=== PATIENT | male | born 1995 | race Caucasian/White ===

== ENCOUNTER 2019-07-01 03:58 | Emergency (ER) | payer BC, SELFPAY ==
[2019-07-01 03:59] VITALS: BP 143/102; PULSE 88; RESP 18; TEMP 36.6; O2SAT 97; BMI 35.6
--- NOTE | 2019-07-01 04:19 | ED_ITS ---
Entered by Ondina Lucero, acting as scribe for Zach Carreno DO HPI - Psych General: Chief Complaint: Psychiatric Symptoms Stated Complaint: SI Time Seen by Provider: 07/01/19 04:19 Source: patient Mode of arrival: EMS Limitations: no limitations History of Present Illness: HPI Narrative: 24 yo m came to the er by [facility]. Pt states that he has si thoughts. Onset was 20 min ago. PT states that the only reason that he is here is because of what someone said. Pt states that he does have a plan but unsure of what that is at this time. Pt states that he has been drinking since 4am. MD complaint: suicidal ideation Onset (ago): minute(s) (20 min ago) Duration: constant History of same: No Relieving factors: none Context: recent alcohol abuse Associated psychiatric symptoms: suicidal ideation Associated symptoms: Deny auditory hallucinations or visual hallucinations Treatments prior to arrival: none If self harm: has plan Details of plan: pt is unsure of plan at this time. Review of Systems Const: Denies: fever or chills Eyes: Denies: change in vision or blurry vision ENMT: Denies: painful swallowing, bleeding gums, dental pain, post nasal drip or facial/sinus pain Card: Denies: chest pain, palpitations, irregular heart rhythm, edema, swelling of feet/ankles, shortness of breath on exertion or shortness of breath when lying down Resp: Denies: shortness of breath, productive cough, non-productive cough or wheezing GI: Denies: abdominal pain, nausea or vomiting : Denies: painful urination or blood in urine Skin/Breast: Denies: rash, itching or redness Neuro: Reports: headache; Denies: confusion Psych: Reports: anxiety; Denies: visual hallucinations or auditory hallucinations PFSH ED PFSH: Statuses (acute, chronic, etc) shown below reflect problem list status as previously entered and may not be historically accurate Social History Smoking and tobacco status: current every day smoker Physical Exam Const: GENERAL APPEARANCE: well developed ORIENTATION/CONSCIOUSNESS: Yes oriented to person, Yes oriented to place and Yes oriented to time HENMT: COMMON NORMALS: normocephalic, external ears normal and external nose normal HEAD & SCALP: normocephalic; no scalp tenderness FACE & SINUS: normal facial exam NOSE: external nose normal and no nasal discharge EXTERNAL EAR: Yes external ears normal MOUTH: tongue normal THROAT: posterior oropharynx normal; no peritonsillar mass Eye: COMMON NORMALS: PERRL, EOMs intact bilaterally and conjunctivae normal EYELID: eyelids normal CONJUNCTIVA: Yes conjunctivae normal PUPIL: Yes PERRL Chest: COMMONS NORMALS: inspection of chest normal CHEST: No tenderness Resp: COMMON NORMALS: clear to auscultation bilaterally EFFORT & INSPECTION: No tachypneic, No respiratory distress, No retractions, No uses accessory muscles and No tracheal deviation AUSCULTATION: clear to auscultation bilaterally, no rhonchi, no wheezes and lung sounds not diminished Cardio: COMMON NORMALS: regular rate and regular rhythm RATE: regular rate RHYTHM: regular rhythm HEART SOUNDS: no murmurs PERIPHERAL PULSES: radial pulses present GI: INSPECTION: No abdominal distension AUSCULTATION: No hyperactive bowel sounds and No hypoactive bowel sounds PALPATION: No guarding and No rigid PERCUSSION: no dullness to percussion and no tympanic to percussion Neuro: SENSORIUM/ORIENTATION: Yes oriented to person, Yes oriented to place and Yes oriented to time Psych: APPEARANCE: Yes unkempt ATTITUDE: Yes withdrawn ACTIVITY/MOTOR BEHAVIOR: Yes appropriate eye contact SPEECH: Yes slurred MOOD & AFFECT: Yes depressed mood THOUGHT PROCESS: No confused and no flight of ideas THOUGHT CONTENT: No suicidality ATTENTION/CONCENTRATION: Yes attention grossly intact MEMORY/COGNITION: Yes memory grossly intact INSIGHT: insight good JUDGEMENT: judgment good Skin: COMMON NORMALS: no rashes or lesions noted GENERAL SKIN EXAM: no rashes or lesions noted MDM - Psych Lab Data: Labs: Lab Results 07/01/19 07/01/19 07/01/19 Range/Units 05:10 05:10 05:20 WBC 10.0 (4.0-10.0) 10^3/ uL RBC 5.77 H (4.1-5.3) 10^6/u L Hgb 16.4 (11.7-16.6) g/dL Hct 47.9 (42.0-52.0) % MCV 83.0 (80-94) fL MCH 28.4 (28.0-34.0) pg MCHC 34.2 (30.0-36.0) g/dL RDW 12.5 (12.1-15.1) % Plt Count 317 (130-400) 10^3/c mm MPV 10.1 (7.4-10.4) fL Neut % (Auto) 55.0 % Lymph % (Auto) 31.8 % [place] % (Auto) 6.2 % Eos % (Auto) 6.1 % Baso % (Auto) 0.6 % Neut # (Auto) 5.5 (1.8-7.7) 10^3/u L Lymph # (Auto) 3.2 (0.8-4.8) 10^3/u L [place] # (Auto) 0.6 (0.2-0.9) 10^3/u L Eos # (Auto) 0.6 (0.0-0.8) 10^3/u L Baso # (Auto) 0.1 (0.0-0.1) 10^3/u L Nucleated RBC % (a uto) 0 % Nucleated RBCs # 0.0 /100WBC Sodium 140 (136-145) mmol/L Potassium 4.0 (3.5-5.1) mmol/L Chloride 103 (98-107) mmol/L Carbon Dioxide 22 (22-29) mmol/L Anion Gap 19.0 (5-19) BUN 11 (6-20) mg/dL Creatinine 0.7 (0.7-1.2) mg/dL GFR Calculation 137.4 H (90-130) mL/min Glucose 100 (74-109) mg/dL Calcium 10.0 (8.5-10.5) mg/dL Total Bilirubin 0.4 (0.15-1.2) mg/dL AST 31 (0-40) U/L ALT 76 H (0-41) U/L Alkaline Phosphata se 93 (40-130) IU/L Total Protein 8.1 (6.6-8.7) g/dL Albumin 4.8 (3.5-5.2) g/dL Globulin 3.3 (1.3-4.6) g/dL Urine Color Yellow (Yellow) Urine Appearance Clear (CLEAR) Urine pH 5 (5-7) Ur Specific Gravit y 1.020 (1.005-1.030) Urine Protein Neg (Negative) Urine Glucose (UA) Norm (Normal) Urine Ketones Negative (Negative) Urine Occult Blood 2+ H (Negative) Urine Nitrate Negative (Negative) Urine Bilirubin Neg (NEGATIVE) Urine Urobilinogen Norm (Negative) mg/dL Ur Leukocyte Elsa ase Negative (Negative) Urine RBC 0-4 H (0-2) /hpf Urine WBC 5-10 H (0-5) /hpf Ur Squamous Epith Cells 0-4 H (0-5) Urine Bacteria 1+ H (NONE) Urine Mucus 2+ Salicylates < 0.3 L (3-10) mg/dL Urine Opiates Scre en (Negative) ng/mL Acetaminophen < 5.0 L (10-30) ug/mL Ur Barbiturates Sc reen (Negative) ng/mL Ur Phencyclidine S crn (Negative) ng/mL Ur Amphetamines Sc reen (Negative) ng/mL U Benzodiazepines Scrn (Negative) ng/mL Urine Cocaine Scre en (Negative) ng/mL U Marijuana (THC) Screen (Negative) ng/mL Ethyl Alcohol 87 H (0-10) mg/dL 07/01/19 Range/Units 05:20 WBC (4.0-10.0) 10^3/ uL RBC (4.1-5.3) 10^6/u L Hgb (11.7-16.6) g/dL Hct (42.0-52.0) % MCV (80-94) fL MCH (28.0-34.0) pg MCHC (30.0-36.0) g/dL RDW (12.1-15.1) % Plt Count (130-400) 10^3/c mm MPV (7.4-10.4) fL Neut % (Auto) % Lymph % (Auto) % [place] % (Auto) % Eos % (Auto) % Baso % (Auto) % Neut # (Auto) (1.8-7.7) 10^3/u L Lymph # (Auto) (0.8-4.8) 10^3/u L [place] # (Auto) (0.2-0.9) 10^3/u L Eos # (Auto) (0.0-0.8) 10^3/u L Baso # (Auto) (0.0-0.1) 10^3/u L Nucleated RBC % (a uto) % Nucleated RBCs # /100WBC Sodium (136-145) mmol/L Potassium (3.5-5.1) mmol/L Chloride (98-107) mmol/L Carbon Dioxide (22-29) mmol/L Anion Gap (5-19) BUN (6-20) mg/dL Creatinine (0.7-1.2) mg/dL GFR Calculation (90-130) mL/min Glucose (74-109) mg/dL Calcium (8.5-10.5) mg/dL Total Bilirubin (0.15-1.2) mg/dL AST (0-40) U/L ALT (0-41) U/L Alkaline Phosphata se (40-130) IU/L Total Protein (6.6-8.7) g/dL Albumin (3.5-5.2) g/dL Globulin (1.3-4.6) g/dL Urine Color (Yellow) Urine Appearance (CLEAR) Urine pH (5-7) Ur Specific Gravit y (1.005-1.030) Urine Protein (Negative) Urine Glucose (UA) (Normal) Urine Ketones (Negative) Urine Occult Blood (Negative) Urine Nitrate (Negative) Urine Bilirubin (NEGATIVE) Urine Urobilinogen (Negative) mg/dL Ur Leukocyte Elsa ase (Negative) Urine RBC (0-2) /hpf Urine WBC (0-5) /hpf Ur Squamous Epith Cells (0-5) Urine Bacteria (NONE) Urine Mucus Salicylates (3-10) mg/dL Urine Opiates Scre en Negative (Negative) ng/mL Acetaminophen (10-30) ug/mL Ur Barbiturates Sc reen Negative (Negative) ng/mL Ur Phencyclidine S crn Negative (Negative) ng/mL Ur Amphetamines Sc reen Negative (Negative) ng/mL U Benzodiazepines Scrn Negative (Negative) ng/mL Urine Cocaine Scre en Negative (Negative) ng/mL U Marijuana (THC) Screen Positive H (Negative) ng/mL Ethyl Alcohol (0-10) mg/dL Discharge Plan Discharge Patient Disposition: Home, Self-Care Condition: Stable Prescriptions: No Action No Known Home Medications RF: 0 Discharge Orders: Discharge Order (Routine); Ordered 07/01/19 Ordered By: Zach Carreno Discharge Diet: Advance as tolerated Discharge Activity: Resume usual activity Patient Instructions: Depression (ED) Discharge Date/Time: 07/01/19 06:36 Coding Level of Care Code ED Sheeter Machine Operator for Chg Fwd The documentation recorded by the Nic gonzalez Stephanie Lyn, accurately reflects the service I personally performed and the decisions made by Wai mancini Jeremy John, DO Jul 01, 2019 03:58
--- NOTE | 2019-07-01 04:27 | PC.NURSE ---
Patient seems a little irritable for being here. States he said a suicidal statement out of anxiety, has no plans and did not truly mean statement. Patient is calm and cooperative at this time and states he feels he is wasting our time. Only agreed to come to be compliant. The person who had him sent here, works here.
[2019-07-01 05:24] LABS: Basophils # 0.1 10^3/uL (0.0-0.1); Basophils % 0.6 %; Eosinophils # 0.6 10^3/uL (0.0-0.8); Eosinophils % 6.1 %; Hematocrit 47.9 % (42.0-52.0); Hemoglobin 16.4 g/dL (11.7-16.6); Lymphocytes # 3.2 10^3/uL (0.8-4.8); Lymphocytes % 31.8 %; Mean Corpuscular HGB Conc 34.2 g/dL (30.0-36.0); Mean Corpuscular Hemoglobin 28.4 pg (28.0-34.0); Mean Platelet Volume 10.1 fL (7.4-10.4); Monocytes # 0.6 10^3/uL (0.2-0.9); Monocytes % 6.2 %; Neutrophils # 5.5 10^3/uL (1.8-7.7); Nucleated Red Blood Cells % 0 %; Platelet Count 317 10^3/cmm (130-400); Red Blood Count 5.77 10^6/uL (4.1-5.3); Red Cell Distribution Width 12.5 % (12.1-15.1)
[2019-07-01] MEDS: ketorolac 10 mg Tablet PO (05:33)
[2019-07-01 05:40] LABS: Acetaminophen < 5.0 ug/mL (10-30); Alanine Aminotransferase 76 U/L (0-41); Albumin Level 4.8 g/dL (3.5-5.2); Alcohol Level 87 mg/dL (0-10); Alkaline Phosphatase 93 IU/L (40-130); Aspartate Amino Transferase 31 U/L (0-40); Blood Urea Nitrogen 11 mg/dL (6-20); Carbon Dioxide 22 mmol/L (22-29); Chloride 103 mmol/L (98-107); Globulin 3.3 g/dL (1.3-4.6); Glomerular Filtration Rate 137.4 mL/min (90-130); Glucose 100 mg/dL (74-109); Salicylate < 0.3 mg/dL (3-10); Sodium 140 mmol/L (136-145); Total Bilirubin 0.4 mg/dL (0.15-1.2); Total Protein 8.1 g/dL (6.6-8.7)
[2019-07-01 06:09] LABS: Add Urine Microscopic? YES; Bilirubin Urine Neg (NEGATIVE); Blood Urine 2+ (Negative); Glucose Urine UA Norm (Normal); Ketones Urine Negative (Negative); Leukocyte Esterase Urine Negative (Negative); Nitrate Urine Negative (Negative); Protein Urine Neg (Negative); Urine Appearance Clear (CLEAR); Urine Color Yellow (Yellow); Urobilinogen Urine Norm (Negative); pH Urine 5 (5-7)
[2019-07-01 06:10] LABS: Add Urine Culture? No; Bacteria Urine 1+; Mucus Urine 2+; RBC Urine 0-4 /hpf (0-2); Squamous Epithelial Cell Urine 0-4 (0-5)
[2019-07-01 06:11] LABS: Amphetamines Screen Urine Negative (Negative); Barbiturates Screen Urine Negative (Negative); Benzodiazepines Screen Urine Negative (Negative); Cocaine Screen Urine Negative (Negative); Opiate Screen Urine Negative (Negative); PCP Screen Urine Negative (Negative); THC Screen Urine Positive (Negative)
[2019-07-01 06:35] VITALS: BP 144/84; PULSE 95; RESP 18; O2SAT 95
== END 2019-07-01 06:36 | disposition home or self-care (01) ==
PROVIDERS: Emergency Provider Emergency Medicine
DX: R45.851 Suicidal ideations (principal); F17.210 Nicotine dependence, cigarettes, uncomplicated
CPT/HCPCS: 80053; 80307; 81001; 85025; 99284; A9270

== ENCOUNTER 2021-05-13 19:24 | Emergency (ER) | payer MEDICAID, SELFPAY ==
[2021-05-13 19:47] VITALS: BP 134/83; PULSE 103; RESP 18; TEMP 37; O2SAT 99; BMI 30.6
--- NOTE | 2021-05-13 19:58 | ED_ITS ---
HPI - General Adult General: Chief complaint: Epistaxis Stated complaint: Nose bleed for 3 days Time Seen by Provider: 05/13/21 19:58 History of Present Illness: HPI narrative: 26-year-old male comes in with persistent nosebleed for the last 3 days. Patient reports significant bleeding at times. Patient appears well. Patient appears no acute distress. Review of Systems General: Reports: 10 or more systems reviewed and unremarkable except in HPI and below ENMT: Reports: epistaxis PFSH ED PFSH: Social History Smoking and tobacco status: current every day smoker Physical Exam Const: COMMON NORMALS: no acute distress and patient oriented x3 GENERAL APPEARANCE: cooperative HENMT: COMMON NORMALS: normocephalic and TM's normal bilaterally HEAD & SCALP: normal to inspection and normocephalic NOSE: Epistaxis present on the left TYMPANIC MEMBRANE: TM's normal bilaterally MOUTH: Normal oral and palatal mucosa present THROAT: other (Tinged blood) Eye: GENERAL EYE: appearance normal, both eyes and all related structures Neck/C-Spine: COMMON NORMALS: full ROM Chest: COMMONS NORMALS: normal inspection of the chest Resp: COMMON NORMALS: normal respiratory effort EFFORT & INSPECTION: Yes able to speak in complete sentences Cardio: COMMON NORMALS: regular rate and regular rhythm RATE: regular rate RHYTHM: regular rhythm GI: COMMON NORMALS: non-tender Extremity: COMMON NORMALS: normal to inspection Neuro: COMMON NORMALS: patient oriented x3 and moves all extremities Psych: COMMON NORMALS: mental status grossly normal and cooperative Skin: COMMON NORMALS: no rashes or lesions noted GENERAL SKIN EXAM: no rashes or lesions noted Procedures Epistaxis Control Nostril: left Nose Prepped With: lidocaine (with epinephrin) Direct Inspection: unable to visualize Clots Removed by: blowing nose Device Inserted: nasal tampon (merocel) Patient Tolerated Procedure: well Course Vital Signs: Vital signs: Vital Signs Temperature 98.6 F 05/13/21 19:47 Pulse Rate 103 H 05/13/21 19:47 Respiratory Rate 18 05/13/21 19:47 Blood Pressure 134/83 05/13/21 19:47 Pulse Oximetry 99 05/13/21 19:47 MDM - General Adult MDM Narrative: Medical decision making narrative: Patient presents with persistent nosebleed from the left naris. On exam respirations are even lungs are clear to auscultation. Blood is noted in the posterior nose. And posterior pharynx there is blood-tinged drainage. No visible clot is noted in the posterior pharynx. Differential diagnosis includes epistaxis, rhinosinusitis, anemia. Patient was able to blow nose and a large clot came out. Then Afrin was used to spray in the nostril. Merka cell was used for a packing. Lidocaine 1% with epinephrine was used to anesthetize. Good epistaxis control was noted prior to discharge. Laboratory values were unremarkable. Reviewed exam with spouse and patient. Recommended packing stay in place for 3 days and have it removed in 3 days either in the emergency department or at primary care or ENT. Patient was placed on Augmentin 875 mg 2 times a day for 10 days. Patient was recommended return to the ER for worsening symptoms or high fever. Lab Data: Labs: Lab Results 05/13/21 05/13/21 05/13/21 19:55 19:55 19:55 WBC 11.4 10^3/uL H 10 ^3/uL (4.0-10.0) RBC 4.79 10^6/uL 10^6 /uL (4.1-5.3) Hgb 13.8 g/dL g/dL (11.7-16.6) Hct 40.7 % L % (42.0-52.0) MCV 85.0 fl fl (80-94) MCH 28.8 pg pg (28.0-34.0) MCHC 33.9 g/dL g/dL (30.0-36.0) RDW 12.9 % % (12.1-15.1) Plt Count 347 10^3/cmm 10^3 /cmm (130-400) MPV 10.3 fL fL (7.4-10.4) Neut % (Auto) 53.7 % % Lymph % (Auto) 34.6 % % [place] % (Auto) 6.7 % % Eos % (Auto) 4.0 % % Baso % (Auto) 0.7 % % Neut # (Auto) 6.14 10^3/uL 10^3 /uL (1.8-7.7) Lymph # (Auto) 4.0 10^3/uL 10^3/ uL (0.8-4.8) [place] # (Auto) 0.8 10^3/uL 10^3/ uL (0.2-0.9) Eos # (Auto) 0.5 10^3/uL 10^3/ uL (0.0-0.8) Baso # (Auto) 0.1 10^3/uL 10^3/ uL (0.0-0.1) Nucleated RBC % (a uto) 0 % % Nucleated RBCs # 0.0 /100WBC /100W BC PT 13.60 SECONDS SEC ONDS (12.1-14.9) INR 1.01 (0.8-1.2) APTT 30.6 SECONDS SECO NDS (23.9-36.7) Sodium 140 mmol/L mmol/L (136-145) Potassium 4.2 mmol/L mmol/L (3.5-5.1) Chloride 103 mmol/L mmol/L (98-107) Carbon Dioxide 23 mmol/L mmol/L (22-29) Anion Gap 18.2 (5-19) BUN 20 mg/dL mg/dL (6-20) Creatinine 0.8 mg/dL mg/dL (0.7-1.2) GFR Calculation 116.0 mL/min mL/m in (90-130) Glucose 88 mg/dL mg/dL (65-115) Calculated Osmolal ity 292 mOsm/kg mOsm/ kg (285-295) Calcium 8.9 mg/dL mg/dL (8.5-10.5) Discharge Plan Discharge Patient Disposition: Home Clinical Impression: Acute anterior epistaxis Condition: Stable Prescriptions: New Augmentin 875-125 mg tablet 1 tab PO BID Qty: 20 RF: 0 Discharge Orders: Discharge ED (Routine); Ordered 05/13/21 Ordered By: Scott De Jesus Discharge Diet: Usual diet Discharge Activity: Increase activity as tolerated Patient Instructions: Nosebleed (ED) Activity Restrictions/Additional Instructions: Use acetaminophen for pain. Take antibiotic 1 tablet 2 times a day for the next 7 to 10 days. Packing should be removed in 3 days. Follow-up with primary care or ENT for packing removal. 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 Return to ER for high fever or to have packing removed if unable to follow-up with primary care or ENT in 3 days. Coding Level of Care Code ED Liquor Store Manager for Chg Fwd
[2021-05-13 20:08] LABS: Basophils # 0.1 10^3/uL (0.0-0.1); Basophils % 0.7 %; Eosinophils # 0.5 10^3/uL (0.0-0.8); Hematocrit 40.7 % (42.0-52.0); Hemoglobin 13.8 g/dL (11.7-16.6); Lymphocytes % 34.6 %; Mean Corpuscular HGB Conc 33.9 g/dL (30.0-36.0); Mean Corpuscular Hemoglobin 28.8 pg (28.0-34.0); Mean Platelet Volume 10.3 fL (7.4-10.4); Monocytes # 0.8 10^3/uL (0.2-0.9); Monocytes % 6.7 %; Neutrophils # 6.14 10^3/uL (1.8-7.7); Neutrophils % 53.7 %; Nucleated Red Blood Cells % 0 %; Platelet Count 347 10^3/cmm (130-400); Red Blood Count 4.79 10^6/uL (4.1-5.3); Red Cell Distribution Width 12.9 % (12.1-15.1); White Blood Count 11.4 10^3/uL (4.0-10.0)
[2021-05-13 20:25] LABS: INR 1.01 (0.8-1.2)
[2021-05-13 20:27] LABS: Anion Gap 18.2 (5-19); Blood Urea Nitrogen 20 mg/dL (6-20); Calcium 8.9 mg/dL (8.5-10.5); Carbon Dioxide 23 mmol/L (22-29); Chloride 103 mmol/L (98-107); Glucose 88 mg/dL (65-115); Osmolality Calculated 292 mOsm/kg (285-295); Partial Thromboplastin Time 30.6 SECONDS (23.9-36.7); Potassium 4.2 mmol/L (3.5-5.1); Sodium 140 mmol/L (136-145)
[2021-05-13] MEDS: amoxicillin-clav 875-125 mg Tablet 1 TAB PO (20:29)
--- NOTE | 2021-05-15 10:37 | DCPLANNER ---
Addendum entered by Rosemarie Pugh 05/15/21 10:51: Patients appointment was rescheduled for Wednesday, May 19, 2021 at 11:40, patient is aware of the appointment change. Original Note: manager combination was asked to schedule a follow up appointment for patient with ENT. manager combination called [facility] General Surgery / ENT clinic, spoke with Simon, gave clinic patients information. manager combination was told that patient could be seen at 9:40 today (05.15.21). manager combination called patients friend, and gave her the appointment information. manager combination was told that patient would attend appointment.
--- NOTE | 2021-05-23 12:04 | DCPLANNER ---
Patient had follow up appointment with ENT - patient did attend appointment.
== END 2021-05-13 20:33 | disposition home or self-care (01) ==
PROVIDERS: Emergency Medicine; Emergency Provider Nurse Practitioner Family
DX: R04.0 Epistaxis (principal); F17.210 Nicotine dependence, cigarettes, uncomplicated
CPT/HCPCS: 80048; 85025; 85610; 85730; 99283

== ENCOUNTER 2021-05-14 11:36 | Emergency (ER) | payer MEDICAID, SELFPAY ==
[2021-05-14 11:44] VITALS: BP 136/87; PULSE 104; RESP 14; TEMP 37.2; O2SAT 100; BMI 30.6
[2021-05-14 11:53] VITALS: BP 136/87; PULSE 104; RESP 14; TEMP 37.2; O2SAT 100
[2021-05-14 12:18] LABS: Basophils # 0.1 10^3/uL (0.0-0.1); Basophils % 0.8 %; Eosinophils # 0.2 10^3/uL (0.0-0.8); Eosinophils % 2.6 %; Hematocrit 39.6 % (42.0-52.0); Hemoglobin 13.7 g/dL (11.7-16.6); Lymphocytes # 3.2 10^3/uL (0.8-4.8); Lymphocytes % 35.2 %; Mean Corpuscular HGB Conc 34.6 g/dL (30.0-36.0); Mean Corpuscular Hemoglobin 28.6 pg (28.0-34.0); Mean Corpuscular Volume 82.7 fl (80-94); Mean Platelet Volume 10.1 fL (7.4-10.4); Monocytes # 0.5 10^3/uL (0.2-0.9); Monocytes % 5.2 %; Neutrophils # 5.04 10^3/uL (1.8-7.7); Nucleated Red Blood Cells % 0 %; Platelet Count 372 10^3/cmm (130-400); Red Blood Count 4.79 10^6/uL (4.1-5.3); Red Cell Distribution Width 12.8 % (12.1-15.1)
--- NOTE | 2021-05-14 12:29 | W.ED.EPISTAX ---
HPI - Epistaxis General: Chief complaint: Epistaxis Stated complaint: NOSE BLEED X4 DAYS: BLEEDING THROUGH PACKING Time Seen by Provider: 05/14/21 11:52 History of Present Illness: HPI Narrative: 26-year-old male presents emergency room as epistaxis for last 4 days. He was seen last night and had the nose packed however despite that he continued to have bleeding. He has bled through the packing when I came to the room he was soaking his mask and he still spitting up moderate amounts of blood. He is not on any anticoagulants. He was started on amoxicillin clavulanic acid at the time of his last visit. Blood pressure is not elevated. He is not previously had injury to the nose or previous sinus surgery. MD complaint: epistaxis Location: left nostril Onset (ago): day(s) (4) Associated symptoms: Deny fever(s) or vomiting Review of Systems Const: Denies: fever(s), chills, body aches, change in appetite, fatigue or malaise Card: Denies: chest pain, edema, dyspnea on exertion or orthopnea Resp: Denies: dyspnea, productive cough or non-productive cough GI: Denies: abdominal pain, nausea, vomiting, hematemesis, coffee ground emesis, diarrhea, constipation, bloating, hematochezia or melena : Denies: flank pain, dysuria, urinary frequency or urinary urgency Skin/Breast: Denies: rash or pruritus PFSH ED PFSH: Social History Smoking and tobacco status: current every day smoker (pack a day 10 yrs) cigarettes Packs smoked per day: 1 Years cigarettes smoked: 10 Physical Exam Const: COMMON NORMALS: no acute distress GENERAL APPEARANCE: cooperative and comfortable ORIENTATION/CONSCIOUSNESS: Yes awake, Yes oriented to person, Yes oriented to place and Yes oriented to time HENMT: COMMON NORMALS: normocephalic, atraumatic, hearing grossly normal bilaterally, external ears normal, EAC's normal, TM's normal bilaterally, moist oral mucous membranes and oropharynx normal HEAD & SCALP: normocephalic and atraumatic EXTERNAL EAR: Yes external ears normal EXTERNAL AUDITORY CANAL: EAC's normal TYMPANIC MEMBRANE: TM's normal bilaterally OTHER: Active GI bleeding in the gel packing left nostril both anteriorly and posteriorly Eye: COMMON NORMALS: Equal, round and reactive pupils present, EOMs intact bilaterally, conjunctivae normal and no scleral icterus CONJUNCTIVA: Yes conjunctivae normal PUPIL: Yes Equal, round and reactive pupils present Resp: COMMON NORMALS: normal respiratory effort, No retractions, No use of accessory muscles and clear to auscultation bilaterally AUSCULTATION: clear to auscultation bilaterally Cardio: COMMON NORMALS: regular rate, regular rhythm and No murmurs present (Cardio) RATE: regular rate RHYTHM: regular rhythm GI: COMMON NORMALS: Soft to palpation and No hepatosplenomegaly present AUSCULTATION: Yes normoactive bowel sounds PALPATION: Yes Soft to palpation, No Tenderness to palpation present (GI), No Guarding due to palpation present (GI) and Yes No hepatosplenomegaly present Extremity: COMMON NORMALS: normal to inspection, capillary refill normal, no clubbing, cyanosis or edema, no calf tenderness and no pedal edema Neuro: SENSORIUM/ORIENTATION: Yes oriented to person, Yes oriented to place and Yes oriented to time Skin: COMMON NORMALS: no rashes or lesions noted GENERAL SKIN EXAM: no rashes or lesions noted Procedures Epistaxis Control Time Out Performed: Yes Nostril: bilateral Nose Prepped With: oxymetazoline Direct Inspection: unable to visualize Clots Removed by: blowing nose Cautery Used: none Device Inserted: hemostatic balloon Patient Tolerated Procedure: no complications Course Vital Signs: Vital signs: Vital Signs Temperature 99.0 F 05/14/21 11:53 Pulse Rate 100 05/14/21 16:40 Respiratory Rate 15 05/14/21 16:40 Blood Pressure 168/93 05/14/21 16:40 Pulse Oximetry 98 05/14/21 16:40 MDM - Epistaxis MDM Narrative: Medical decision making narrative: Gel pack removed from the left nare. Both nares sprayed with normal saline and then patient forcefully blow her nose immediately applied oxymetazoline on and then placed Rhino Rocket's bilaterally and inflated. After this is completed patient continued to have bleeding posteriorly we did get ENT Dr. Tiwari came down and seen the patient he was able to manipulate tomorrow and the bleeding had stopped. He recommends discharge home blood pressure control Ativan pain control and benzodiazepines follow-up in his office in 2 3 to 5 days. Return if is worsening problems. Lab Data: Labs: Lab Results 05/14/21 05/14/21 05/14/21 12:08 12:08 12:08 WBC 9.0 10^3/uL 10^3/ uL (4.0-10.0) RBC 4.79 10^6/uL 10^6 /uL (4.1-5.3) Hgb 13.7 g/dL g/dL (11.7-16.6) Hct 39.6 % L % (42.0-52.0) MCV 82.7 fl fl (80-94) MCH 28.6 pg pg (28.0-34.0) MCHC 34.6 g/dL g/dL (30.0-36.0) RDW 12.8 % % (12.1-15.1) Plt Count 372 10^3/cmm 10^3 /cmm (130-400) MPV 10.1 fL fL (7.4-10.4) Neut % (Auto) 56.0 % % Lymph % (Auto) 35.2 % % [place] % (Auto) 5.2 % % Eos % (Auto) 2.6 % % Baso % (Auto) 0.8 % % Neut # (Auto) 5.04 10^3/uL 10^3 /uL (1.8-7.7) Lymph # (Auto) 3.2 10^3/uL 10^3/ uL (0.8-4.8) [place] # (Auto) 0.5 10^3/uL 10^3/ uL (0.2-0.9) Eos # (Auto) 0.2 10^3/uL 10^3/ uL (0.0-0.8) Baso # (Auto) 0.1 10^3/uL 10^3/ uL (0.0-0.1) Nucleated RBC % (a uto) 0 % % Nucleated RBCs # 0.0 /100WBC /100W BC PT 13.80 SECONDS SEC ONDS (12.1-14.9) INR 1.03 (0.8-1.2) APTT 30.6 SECONDS SECO NDS (23.9-36.7) Sodium 137 mmol/L mmol/L (136-145) Potassium 4.0 mmol/L mmol/L (3.5-5.1) Chloride 102 mmol/L mmol/L (98-107) Carbon Dioxide 17 mmol/L L mmol/ L (22-29) Anion Gap 22.0 H (5-19) BUN 17 mg/dL mg/dL (6-20) Creatinine 0.8 mg/dL mg/dL (0.7-1.2) GFR Calculation 116.0 mL/min mL/m in (90-130) Glucose 80 mg/dL mg/dL (65-115) Calculated Osmolal ity 285 mOsm/kg mOsm/ kg (285-295) Calcium 9.1 mg/dL mg/dL (8.5-10.5) Total Bilirubin 0.3 mg/dL mg/dL (0.15-1.2) AST 14 U/L U/L (0-40) ALT 13 U/L U/L (0-41) Alkaline Phosphata se 92 IU/L IU/L (40-130) Total Protein 7.1 g/dL g/dL (6.6-8.7) Albumin 4.6 g/dL g/dL (3.5-5.2) Globulin 2.5 g/dL g/dL (1.3-4.6) Discharge Plan Discharge Patient Disposition: Home Clinical Impression: Acute anterior epistaxis Condition: Stable Prescriptions: New lisinopril 5 mg tablet 5 mg PO DAILY Qty: 10 RF: 0 Valium 5 mg tablet 5 mg PO Q6H PRN (Reason: anxiety) Qty: 20 RF: 0 hydrocodone-acetaminophen 5-325 mg tablet 1 tab PO Q6H PRN (Reason: pain) Qty: 14 RF: 0 No Action Centrum Men 8 mg iron- 200 mcg-600 mcg Tablet 1 tab PO DAILY RF: 0 amoxicillin-pot clavulanate [Augmentin] 875-125 mg tablet 1 tab PO BID Qty: 20 RF: 0 Discharge Orders: Discharge ED (Routine); Ordered 05/14/21 Ordered By: Curt Ames Patient Instructions: Opioid Safety Activity Restrictions/Additional Instructions: Follow-up with Dr. Tiwari in his office in 4 to 5 days. Return to the ER if you have any further problems. Coding Level of Care Code ED Guest Services Attendant for Wilson Andres
[2021-05-14 12:40] LABS: Alanine Aminotransferase 13 U/L (0-41); Albumin Level 4.6 g/dL (3.5-5.2); Alkaline Phosphatase 92 IU/L (40-130); Aspartate Amino Transferase 14 U/L (0-40); Blood Urea Nitrogen 17 mg/dL (6-20); Calcium 9.1 mg/dL (8.5-10.5); Carbon Dioxide 17 mmol/L (22-29); Chloride 102 mmol/L (98-107); Globulin 2.5 g/dL (1.3-4.6); Glucose 80 mg/dL (65-115); Osmolality Calculated 285 mOsm/kg (285-295); Sodium 137 mmol/L (136-145); Total Bilirubin 0.3 mg/dL (0.15-1.2); Total Protein 7.1 g/dL (6.6-8.7)
[2021-05-14 12:41] LABS: INR 1.03 (0.8-1.2)
[2021-05-14 12:42] LABS: Partial Thromboplastin Time 30.6 SECONDS (23.9-36.7)
[2021-05-14] MEDS: sodium chloride 0.9% 1,000 ML 999 ML IV (13:37)
[2021-05-14] MEDS: LORazepam 2 mg/mL INJ 1 mL 1 MG IVP ×2 (14:03→15:49)
[2021-05-14] MEDS: nicotine 21 mg Patch 1 PATCH TRANSDERMA (14:03)
[2021-05-14] MEDS: oxymetazoline 0.05% Nasal Spray 15 mL 2 SPRAY NOSTRIL-B (14:04)
[2021-05-14] MEDS: saline nasal spray 44mL Btl 1 SPRAY NASAL (14:04)
[2021-05-14 14:27] VITALS: RESP 18; O2SAT 98
[2021-05-14] MEDS: morphine 4 mg/mL SDV 1 mL 2 MG IVP (14:27)
[2021-05-14] MEDS: HYDROmorphone 1 mg/mL INJ 1 mL IVP (15:48)
[2021-05-14] MEDS: hyDRALAzine 20 mg/mL INJ 1 mL 10 MG IVP (15:49)
[2021-05-14 16:19] VITALS: BP 168/93; PULSE 100; RESP 15; O2SAT 98
[2021-05-14 16:40] VITALS: BP 168/93; PULSE 100; RESP 15; O2SAT 98
--- NOTE | 2021-05-15 08:18 | PM.CONSULT ---
Providers/Reason For Consult Consulting Physician/Specialty*: Sharan Tiwari/otolaryngology Reason for Consult*: Epistaxis Requesting Physician: Dr. Toth History of Present Illness History of Present Illness Huang Turner is a 26 year old male who has had epistaxis problems from the left side of his nose that started spontaneously 3 days ago. He tried to control it at home and finally went to the emergency room on 05/13/2021. Packing was accomplished with Merocel sponge and Afrin. This did not control the bleeding. He came back to the emergency room on 05/14/2021. Dr. Toth called and I advised that he switch over to bilateral Rhino Rocket's. I was called to the emergency room as a result of his persistent bleeding. Review of Systems General: Reports: 10 or more systems reviewed and unremarkable except in HPI and below ENMT: Reports: epistaxis and sinus pain Meds/Allergies Home Medications and Allergies Home Medications Medication Instructions Recorded Confirmed Last Taken Type amoxicillin-pot clavulanate 1 tab PO BID #20 tab 05/13/21 05/14/21 05/13/21 Rx [Augmentin] diazepam [Valium] 5 mg PO Q6H PRN #20 tab 05/14/21 Unknown Rx hydrocodone-acetaminophen 1 tab PO Q6H PRN #14 tab 05/14/21 Unknown Rx lisinopril 5 mg PO DAILY #10 tab 05/14/21 Unknown Rx mv,Ca,fjz-wspi-SF-lycopene 1 tab PO DAILY 05/14/21 05/14/21 05/13/21 History [Centrum Men] Allergies Allergy/AdvReac Type Severity Reaction Status Date / Time No Known Allergies Allergy Verified 07/01/19 04:05 PFSH Acute PFSH: Social History Smoking and tobacco status: current every day smoker Vitals/I&O/Wt Last Vital Signs Temp 99.0 F 05/14/21 11:53 Pulse 100 05/14/21 16:40 Resp 15 05/14/21 16:40 BP 168/93 05/14/21 16:40 Pulse Ox 98 05/14/21 16:40 05/14/21 05/15/21 05/15/21 22:59 06:59 14:59 Intake Total 1000 / 1000 Balance 1000 / 1000 Weight last 48 hrs Weight 232 lb Physical Exam Const: COMMON NORMALS: average body habitus, patient oriented x3, healthy appearing, alert and well nourished GENERAL APPEARANCE: cooperative, comfortable, well kempt, well developed, in distress and anxious ORIENTATION/CONSCIOUSNESS: Yes awake HENMT: NOSE: Epistaxis present (Minimal serosanguineous discharge) on the left and Other nasal findings present (Bilateral Rhino Rocket's in place and inflated. No active epistaxis) Neuro: COMMON NORMALS: patient oriented x3 SENSORIUM/ORIENTATION: Yes alert Psych: APPEARANCE: Yes well kempt A&P Assessment and plan (1) Acute anterior epistaxis: Assessment: Patient having pain from the packing along with anxiety and hypertension as high as 190/110. The patient was given Ativan and morphine. The morphine seemed to actually increase his pain. Bleeding was controlled down to minimal blood-tinged thick secretions and mucus from the nose. Plan: Patient should maintain these packs in place until 05/19/2021 where I will see the patient in the office and remove his packing. The patient will be maintained on Augmentin for prophylaxis due to the packing. I recommend to Dr. Toth that he be given pain medication as well as Valium for anxiety. He needs to remain off work until after I see him. He will be provided a note for that purpose. At home he needs to remain quiet with his head elevated. He should not be doing anything vigorous or active. No bending lifting or straining. 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
== END 2021-05-14 16:44 | disposition home or self-care (01) ==
PROVIDERS: Emergency Provider Family Medicine
DX: R04.0 Epistaxis (principal); F17.210 Nicotine dependence, cigarettes, uncomplicated
CPT/HCPCS: 30901; 80053; 85025; 85610; 85730; 96361; 96374; 96375; 96376; 99284; J0360; J1170; J2060; J2270; J7030

== ENCOUNTER 2021-07-21 07:44 | Emergency (ER) | payer BC, MEDICAID, SELFPAY ==
[2021-07-21 07:52] VITALS: BP 136/88; PULSE 98; RESP 18; TEMP 36.4; O2SAT 98; BMI 29.0
--- NOTE | 2021-07-21 07:57 | W.ED.ABDPA2 ---
HPI - Abdominal Pain General: Chief Complaint: Abdominal Pain Stated Complaint: ABD PAIN Time Seen by Provider: 07/21/21 07:46 Source: patient Mode of arrival: EMS History of Present Illness: 26-year-old male presents to the emergency room with complaint of abdominal pain. Patient reports right upper quadrant abdominal pain with nausea and vomiting that he has had for several years. He has not had any diarrhea with it denies any medication on hematemesis or coffee-ground emesis. This morning while he was driving to work he began to have abdominal discomfort he states it spread from his abdomen to his face or he felt a cramping sensation in his face and then his hands bilaterally. States his friend had to pry his hands off of the steering well. He is not having any significant discomfort at the time of arrival here. No fever sweats or chills no vomiting after this episode he is not had any seizure-like activity. MD elicited complaint: abdominal pain Onset (ago): minute(s) Pain Consistency: intermittent Location: RUQ Severity: moderate Quality: cramping Radiation: other (Face and arms/hands) Exacerbating factors: nothing Relieving factors: nothing Associated Symptoms: Reports bloating, GI cramping and nausea; Denies anorexia, belching, change in bowel habits, change in stool character, chills, coffee ground emesis, constipation, diarrhea, dyspepsia, dysuria, excessive flatus, fever(s), heartburn, hematochezia, hematuria, hematemesis, fecal incontinence, loose stools, melena, poor appetite, syncope and vomiting Review of Systems Const: Denies: fever(s) or chills Card: Denies: syncope Resp: Denies: dyspnea, productive cough or non-productive cough GI: Reports: nausea, bloating and GI cramping; Denies: vomiting, hematemesis, coffee ground emesis, heartburn, diarrhea, constipation, belching, excessive flatus, fecal incontinence, change in bowel habits, change in stool character, hematochezia or melena : Denies: dysuria or hematuria PFSH ED PFSH: Medical History (Updated 07/21/21 @ 10:52 by Curt Ames DO) Severe epistaxis Social History (Updated 07/21/21 @ 08:00 by Curt Ames DO) Smoking and tobacco status: current every day smoker cigarettes Packs smoked per day: 1 Years cigarettes smoked: 10 Alcohol intake: current Substance/Drug Use: current Substance/Drug use type: Marijuana Physical Exam Const: COMMON NORMALS: no acute distress GENERAL APPEARANCE: cooperative and comfortable ORIENTATION/CONSCIOUSNESS: Yes awake, Yes oriented to person, Yes oriented to place and Yes oriented to time HENMT: COMMON NORMALS: normocephalic, atraumatic and hearing grossly normal bilaterally HEAD & SCALP: normocephalic and atraumatic Neck/C-Spine: COMMON NORMALS: no JVD Resp: COMMON NORMALS: normal respiratory effort, No retractions, No use of accessory muscles and clear to auscultation bilaterally AUSCULTATION: clear to auscultation bilaterally Cardio: COMMON NORMALS: no JVD, regular rate, regular rhythm and No murmurs present (Cardio) RATE: regular rate RHYTHM: regular rhythm GI: COMMON NORMALS: Soft to palpation and No hepatosplenomegaly present AUSCULTATION: Yes normoactive bowel sounds PALPATION: Yes Soft to palpation, No Tenderness to palpation present (GI), No Guarding due to palpation present (GI) and Yes No hepatosplenomegaly present Extremity: COMMON NORMALS: normal to inspection, capillary refill normal, no clubbing, cyanosis or edema, no calf tenderness and no pedal edema Neuro: SENSORIUM/ORIENTATION: Yes oriented to person, Yes oriented to place and Yes oriented to time Skin: COMMON NORMALS: no rashes or lesions noted GENERAL SKIN EXAM: no rashes or lesions noted Course Vital Signs: Vital signs: Vital Signs Temperature 98.1 F 07/21/21 08:30 Pulse Rate 68 07/21/21 08:30 Respiratory Rate 18 07/21/21 10:30 Blood Pressure 147/85 07/21/21 10:30 Pulse Oximetry 96 07/21/21 10:00 MDM - Abdominal Pain Medical Decision Making CT shows mesenteric lymphadenitis as well as some inflammation in the stomach and duodenum. Avoid NSAIDs. Start on pantoprazole. Ondansetron as needed. Clinical diet for 48 hours and advance as tolerated. Also reviewed ABG findings with the patient. Think his episode he had in the car as well as the episode here in the emergency room a result of panic attacks were hyperventilated. ABG showed respiratory alkalosis his description of the events prior to coming in sounded like he had had a hypohyperventilation syndrome as well. Discussed this with him. Follow-up with his primary care. Medical Records I reviewed the patient's medical records. Lab Data I reviewed the patient's lab results. : 07/21/21 08:05 07/21/21 08:05 Labs/Radiology: Radiology Impressions Abdomen/Pelvis CT 07/21/21 08:33 IMPRESSION: 1. Circumferential mucosal thickening with enhancement involving the body of the stomach and proximal small bowel. Most likely infectious or inflammatory. 2. No appendicitis. 3. Small mesenteric and RIGHT lower quadrant lymph nodes consistent with mesenteric adenitis. 4. No free fluid. 5. Small amount of free fluid along the RIGHT inguinal canal. No hernia containing small bowel or colon. Head CT 07/21/21 08:33 IMPRESSION: 1. No acute intracranial hemorrhage or edema. 2. Very mild bifrontal lobe atrophy, more than expected for age. No infarct. Mild progression since 2014. Laboratory Results WBC 11.9 10^3/uL (4.0-10.0) H 07/21/21 08:05 RBC 6.10 10^6/uL (4.1-5.3) H 07/21/21 08:05 Hgb 16.9 g/dL (11.7-16.6) H 07/21/21 08:05 Hct 51.5 % (42.0-52.0) 07/21/21 08:05 MCV 84.4 fl (80-94) 07/21/21 08:05 MCH 27.7 pg (28.0-34.0) L 07/21/21 08:05 MCHC 32.8 g/dL (30.0-36.0) 07/21/21 08:05 RDW 12.8 % (12.1-15.1) 07/21/21 08:05 Plt Count 309 10^3/cmm (130-400) 07/21/21 08:05 MPV 10.0 fL (7.4-10.4) 07/21/21 08:05 Neut % (Auto) 81.9 % 07/21/21 08:05 Lymph % (Auto) 8.6 % 07/21/21 08:05 Gooding % (Auto) 6.8 % 07/21/21 08:05 Eos % (Auto) 1.9 % 07/21/21 08:05 Baso % (Auto) 0.4 % 07/21/21 08:05 Neut # (Auto) 9.75 10^3/uL (1.8-7.7) H 07/21/21 08:05 Lymph # (Auto) 1.0 10^3/uL (0.8-4.8) 07/21/21 08:05 Gooding # (Auto) 0.8 10^3/uL (0.2-0.9) 07/21/21 08:05 Eos # (Auto) 0.2 10^3/uL (0.0-0.8) 07/21/21 08:05 Baso # (Auto) 0.1 10^3/uL (0.0-0.1) 07/21/21 08:05 Nucleated RBC % (auto) 0 % 07/21/21 08:05 Nucleated RBCs # 0.0 /100WBC 07/21/21 08:05 Specimen Type Arterial 07/21/21 08:44 Sample Site Radial, left 07/21/21 08:44 ABG pH 7.50 (7.35-7.45) H 07/21/21 08:44 ABG pCO2 29.1 mmHg (35-45) L 07/21/21 08:44 ABG pO2 107.0 mmHg (80.0-100.0) H 07/21/21 08:44 ABG HCO3 22.9 mmol/L (22-26) 07/21/21 08:44 ABG O2 Saturation 99.1 07/21/21 08:44 ABG Base Excess 1.1 mmol/L (-2.0-2.0) 07/21/21 08:44 Sergio Test Pos 07/21/21 08:44 A-a O2 Gradient 0.6 mmHg (5-10) L 07/21/21 08:44 Hematocrit 52.6 % (42-52) H 07/21/21 08:44 Hgb O2 Saturation 97.2 % (95-100) 07/21/21 08:44 Carboxyhemoglobin 1.2 %THgb (0.4-20.1) 07/21/21 08:44 Methemoglobin 0.8 % (0.4-1.5) 07/21/21 08:44 Total Hemoglobin 17.2 g/dL (14-18) 07/21/21 08:44 Sodium 141.0 mmol/L (131-143) 07/21/21 08:44 Potassium 3.4 mmol/L (3.5-5.0) L 07/21/21 08:44 Glucose 111.0 mg/dL (70-115) 07/21/21 08:44 Ionized Calcium 1.2 mmol/L (1.1-1.4) 07/21/21 08:44 O2 Delivery Device Room air 07/21/21 08:44 FiO2 21.0 % 07/21/21 08:44 Computer Aided Design Technician ID Ed 07/21/21 08:44 Sodium 138 mmol/L (136-145) 07/21/21 08:05 Potassium 3.9 mmol/L (3.5-5.1) 07/21/21 08:05 Chloride 103 mmol/L (98-107) 07/21/21 08:05 Carbon Dioxide 22 mmol/L (22-29) 07/21/21 08:05 Anion Gap 16.9 (5-19) 07/21/21 08:05 BUN 19 mg/dL (6-20) 07/21/21 08:05 Creatinine 0.6 mg/dL (0.7-1.2) L 07/21/21 08:05 GFR Calculation 161.6 mL/min (90-130) H 07/21/21 08:05 Glucose 119 mg/dL (65-115) H 07/21/21 08:05 Calculated Osmolality 289 mOsm/kg (285-295) 07/21/21 08:05 Calcium 9.7 mg/dL (8.5-10.5) 07/21/21 08:05 Total Bilirubin 0.4 mg/dL (0.15-1.2) 07/21/21 08:05 AST 15 U/L (0-40) 07/21/21 08:05 ALT 19 U/L (0-41) 07/21/21 08:05 Alkaline Phosphatase 111 IU/L (40-130) 07/21/21 08:05 Total Protein 7.6 g/dL (6.6-8.7) 07/21/21 08:05 Albumin 4.7 g/dL (3.5-5.2) 07/21/21 08:05 Globulin 2.9 g/dL (1.3-4.6) 07/21/21 08:05 Lipase 14 U/L (13-60) 07/21/21 08:05 Urine Color Yellow (Yellow) 07/21/21 10:30 Urine Appearance Clear (CLEAR) 07/21/21 10:30 Urine pH 9 (5-7) H 07/21/21 10:30 Ur Specific Dania 1.010 (1.005-1.030) 07/21/21 10:30 Urine Protein Neg (Negative) 07/21/21 10:30 Urine Glucose (UA) Norm (Normal) 07/21/21 10:30 Urine Ketones Negative (Negative) 07/21/21 10:30 Urine Blood Neg (Negative) 07/21/21 10:30 Urine Nitrate Negative (Negative) 07/21/21 10:30 Urine Bilirubin Neg (Negative) 07/21/21 10:30 Prot Sulfosalicylic Acd Negative (Negative) 07/21/21 10:30 Urine Urobilinogen Norm mg/dL (Negative) 07/21/21 10:30 Ur Leukocyte Esterase Negative (Negative) 07/21/21 10:30 Discharge Plan Discharge Patient Disposition: Home Clinical Impression: Mesenteric lymphadenitis, Hyperventilation Prescriptions: New Protonix 40 mg tablet,delayed release (DR/EC) 40 mg PO DAILY 56 Days Qty: 60 0RF Zofran 4 mg tablet 4 mg PO Q6H PRN (Reason: nausea and vomiting) Qty: 20 0RF No Action Excedrin Migraine 250-250-65 mg Tablet 2 tab PO Q6H PRN (Reason: Migraine Headache) 0RF Discharge Orders: Discharge ED (Routine); Ordered 07/21/21 Ordered By: Curt Ames Patient Instructions: Opioid Safety Activity Restrictions/Additional Instructions: Avoid NSAIDs. Clear liquid diet for 48 hours and advance as tolerated. Pantoprazole daily, ondansetron as needed Coding Level of Care Code ED Logistics Assistant for Wilson Fwd Exam Comprehensive
[2021-07-21 08:09] VITALS: BP 136/88; PULSE 90; RESP 18; TEMP 36.6; O2SAT 99
[2021-07-21 08:12] LABS: Basophils # 0.1 10^3/uL (0.0-0.1); Basophils % 0.4 %; Eosinophils # 0.2 10^3/uL (0.0-0.8); Eosinophils % 1.9 %; Hematocrit 51.5 % (42.0-52.0); Hemoglobin 16.9 g/dL (11.7-16.6); Lymphocytes % 8.6 %; Mean Corpuscular HGB Conc 32.8 g/dL (30.0-36.0); Mean Corpuscular Hemoglobin 27.7 pg (28.0-34.0); Mean Corpuscular Volume 84.4 fl (80-94); Monocytes # 0.8 10^3/uL (0.2-0.9); Monocytes % 6.8 %; Neutrophils # 9.75 10^3/uL (1.8-7.7); Neutrophils % 81.9 %; Nucleated Red Blood Cells % 0 %; Platelet Count 309 10^3/cmm (130-400); Red Cell Distribution Width 12.8 % (12.1-15.1); White Blood Count 11.9 10^3/uL (4.0-10.0)
[2021-07-21 08:30] VITALS: BP 136/72; PULSE 68; RESP 18; TEMP 36.7
[2021-07-21 08:30] LABS: Alanine Aminotransferase 19 U/L (0-41); Albumin Level 4.7 g/dL (3.5-5.2); Alkaline Phosphatase 111 IU/L (40-130); Anion Gap 16.9 (5-19); Aspartate Amino Transferase 15 U/L (0-40); Blood Urea Nitrogen 19 mg/dL (6-20); Calcium 9.7 mg/dL (8.5-10.5); Carbon Dioxide 22 mmol/L (22-29); Chloride 103 mmol/L (98-107); Globulin 2.9 g/dL (1.3-4.6); Glomerular Filtration Rate 161.6 mL/min (90-130); Glucose 119 mg/dL (65-115); Lipase 14 U/L (13-60); Osmolality Calculated 289 mOsm/kg (285-295); Potassium 3.9 mmol/L (3.5-5.1); Sodium 138 mmol/L (136-145); Total Bilirubin 0.4 mg/dL (0.15-1.2); Total Protein 7.6 g/dL (6.6-8.7)
--- NOTE | 2021-07-21 08:33 | CT_ITS ---
WS: [id number] CT ABDOMEN AND PELVIS WITH CONTRAST HISTORY: Generalized abdominal pain for several days. TECHNIQUE: Imaging performed of the abdomen and pelvis with IV contrast. Single phase imaging of the abdomen. Coronal and sagittal reformats are submitted. All CT scans at [facility] use at [facility] one of these dose optimization techniques: automated exposure control; mA and/or kV adjustment per patient size (includes targeted exams where dose is matched to clinical indication); or iterative re construction. IV CONTRAST: Omnipaque 300; 95 mL IV. Oral contrast: No DLP: 1759.8 mGy.cm COMPARISON: 02/21/2019 Lower thorax: Lung bases are clear. Heart is normal size. No hiatal hernia. Liver/biliary system: Normal size with no intrahepatic dilatation. Gallbladder: Normal. No gallstones or wall thickening. No pericholecystic fluid. Pancreas: Normal size pancreas and pancreatic duct. No adjacent inflammation. Spleen: Normal size spleen. No mass or infarct. Adrenal glands: Normal. Right kidney: Normal. Left kidney: Normal size kidney. No mass. 3 mm hypodensity in the mid kidney. Aorta: Normal. Lymphadenopathy: There are numerous mesenteric and RIGHT lower quadrant lymph nodes. These lymph node s are subcentimeter but numerous. Free fluid: None. GI tract: There is hyperemia and circumferential enhancement and thickening involving the body of the stomach extending towards the antrum. No significant thickening at the fundus although there is incr ease fluid within the stomach. There is mild fluid distention and mild hyperemia involving the small bowel loops. No obstruction. No appendicitis. Colon is negative. Abdominal wall: Unremarkable abdominal wall. No hernia. Pelvis: No free fluid or adenopathy within the pelvis. Ovoid soft tissue nodule along the RIGHT ingui nal canal probably fluid. There is no connection to the GI tract. Bones: Bone island LEFT femoral head. CT/CT abdomen pelvis w con* [id number] IMPRESSION: 1. Circumferential mucosal thickening with enhancement involving the body of t he stomach and proximal small bowel. Most likely infectious or inflammatory. 2. No appendicitis. 3. Small mesenteric and RIGHT lower quadrant lymph nodes consistent with mesen teric adenitis. 4. No free fluid. 5. Small amount of free fluid along the RIGHT inguinal canal. No hernia contai sudhir small bowel or colon.
--- NOTE | 2021-07-21 08:33 | CT_ITS ---
WS: [id number] CT HEAD NONCONTRAST HISTORY: AMS TECHNIQUE: Contiguous axial imaging performed through the brain in 2.5 mm imaging. Bone and soft tiss ue windows. Sagittal and coronal reformats reviewed. All CT scans at [facility] use at least one of these dose optimization techniques: automated exposure control; mA and/or kV adjustment per pa tient size (includes targeted exams where dose is matched to clinical indication); or iterative recon struction. DLP: 937.02 mGy.cm COMPARISON: 07/01/2014 No acute intracranial hemorrhage, midline shift or mass effect. Mild bifrontal lobe atrophy is slightly more than expected for this patient's age. No area of sulcal effacement or prior infarct. Ventricles: Normal size with no hydrocephalus. Paranasal sinuses: Mild mucosal thickening ethmoid sinuses. No air-fluid levels. Mastoid air cells: Well pneumatized. Calvarium and scalp: Skull is intact with no soft tissue edema or swelling. CT/CT head wo con* [id number] IMPRESSION: 1. No acute intracranial hemorrhage or edema. 2. Very mild bifrontal lobe atrophy, more than expected for age. No infarct. M ild progression since 2014.
[2021-07-21] MEDS: LORazepam 2 mg/mL INJ 1 mL IVP (08:45)
--- NOTE | 2021-07-21 08:47 | PC.NURSE ---
Cramping to LUE, hyperventilating, anxious. 2MG ativan IV per order.
[2021-07-21 08:54] LABS: ABG PCO2 29.1 mmHg (35-45); Alveolar-Arterial Oxygen Gradi 0.6 mmHg (5-10); Arterial Blood Gas Hematocrit 52.6 % (42-52); Base Excess ABG 1.1 mmol/L (-2.0-2.0); Blood Gas Allen Test Pos; Blood Gas Operator Identificat ED; Blood Gas Sample Site Radial, left; Blood Gas Sample Type Arterial; Carboxyhemoglobin 1.2 %THgb (0.4-20.1); HCO3 ABG 22.9 mmol/L (22-26); HGB O2 Sat 97.2 % (95-100); Ionized Calcium Level - ABG 1.2 mmol/L (1.1-1.4); Methemoglobin 0.8 % (0.4-1.5); Oxygen Device ROOM AIR; Oxygen Saturation ABG 99.1; Potassium Level - ABG 3.4 mmol/L (3.5-5.0); Total Hemoglobin 17.2 g/dL (14-18)
--- NOTE | 2021-07-21 09:13 | PC.NURSE ---
Lft for CT
[2021-07-21] MEDS: iohexol 300 mg/mL 100 mL Btl IV (09:47)
[2021-07-21 10:00] VITALS: BP 136/78; RESP 18; O2SAT 96
[2021-07-21 10:30] VITALS: BP 147/85; RESP 18
[2021-07-21 10:46] LABS: Add Urine Microscopic? NO; Charge for UA Resulting for Rev
[2021-07-21 10:49] LABS: Bilirubin Urine Neg (Negative); Blood Urine Neg (Negative); Glucose Urine UA Norm (Normal); Ketones Urine Negative (Negative); Leukocyte Esterase Urine Negative (Negative); Nitrate Urine Negative (Negative); Protein Urine Neg (Negative); Sulfosalicylic Acid Urine Negative (Negative); Urine Appearance Clear (CLEAR); Urine Color Yellow (Yellow); Urobilinogen Urine Norm (Negative); pH Urine 9 (5-7)
== END 2021-07-21 11:07 | disposition home or self-care (01) ==
PROVIDERS: Emergency Provider Family Medicine
DX: R06.4 Hyperventilation (principal); I88.0 Nonspecific mesenteric lymphadenitis; F17.210 Nicotine dependence, cigarettes, uncomplicated
CPT/HCPCS: 36600; 70450; 74177; 80051; 80053; 81003; 82330; 82805; 83690; 85025; 96374; 99284; J2060; Q9967

== ENCOUNTER 2021-11-30 15:39 | Emergency (ER) | payer BC, MEDICAID, SELFPAY ==
[2021-11-30 15:46] VITALS: BP 111/78; PULSE 75; RESP 20; TEMP 37.3; O2SAT 99
--- NOTE | 2021-11-30 16:14 | ED_ITS ---
HPI - Back Pain/Injury General: Chief Complaint: Back Pain/Injury Stated Complaint: BACK PAIN Time Seen by Provider: 11/30/21 16:00 History of Present Illness: Patient is a 26-year-old male comes to the ED with lower back pain. [place] but did not fall down. He says when he slipped he cannot tweaked his back while carrying a cooler. Denies any trauma or other known injury to cause symptoms. Today he woke up and was having severe lower back pain. It is on the right side of his lower back and it radiates down into his right leg. Some movements with his torso and right leg cause worsening symptoms. He is able to have some relief from his back pain when he is laying in certain positions. Pain he describes as sharp and will have episodes where its more severe. Rates the pain a 10 out of 10. Patient says he does have a history of kidney stones but says this lower back pain does not feel like past kidney stones. Denies any cauda equina symptoms. Associated symptoms: Deny abdominal pain, chills, dysuria, fatigue, fever(s), hematuria, nausea or vomiting Review of Systems Const: Denies: fever(s), chills or fatigue Eyes: Denies: change in vision or eye discomfort ENMT: Denies: throat pain, odynophagia, nasal discharge or nasal congestion Card: Denies: chest pain, palpitations, edema, swelling of feet/ankles, dyspnea on exertion or orthopnea Resp: Denies: dyspnea, productive cough or non-productive cough GI: Denies: abdominal pain, nausea, vomiting, diarrhea, constipation or hematochezia : Denies: flank pain, difficulty urinating, dysuria or hematuria Musc: Reports: back pain; Denies: neck pain or extremity swelling Skin/Breast: Denies: rash or new lesions Neuro: Denies: headache(s), numbness in extremities or weakness in extremities [facility] ED PFSH: Medical History (Updated 12/01/21 @ 01:50 by CHARITO Abebe) No pertinent family history Severe epistaxis Surgical History (Updated 12/01/21 @ 01:49 by CHARITO Abebe) No pertinent past surgical history Social History Smoking and tobacco status: never smoked Alcohol intake: current Alcohol intake frequency: holidays/special occasions only Physical Exam Const: COMMON NORMALS: patient oriented x3 and alert GENERAL APPEARANCE: cooperative HENMT: COMMON NORMALS: normocephalic HEAD & SCALP: normocephalic MOUTH: Normal oral and palatal mucosa present THROAT: posterior oropharynx normal and uvula midline Neck/C-Spine: COMMON NORMALS: supple GENERAL: Yes normal visual inspection Resp: COMMON NORMALS: normal respiratory effort, No retractions, No use of accessory muscles and clear to auscultation bilaterally AUSCULTATION: clear to auscultation bilaterally Cardio: COMMON NORMALS: regular rate, regular rhythm, S1 normal heart sound present, S2 normal heart sound present, No gallops present (Cardio), No clicks present (Cardio), No murmurs present (Cardio) and Peripheral pulses 2+ throughout RATE: regular rate RHYTHM: regular rhythm HEART SOUNDS: S1 normal heart sound present and S2 normal heart sound present PERIPHERAL PULSES: Peripheral pulses 2+ throughout GI: COMMON NORMALS: Normal to inspection, nondistended, normoactive bowel sounds present, Soft to palpation, non-tender and no masses PALPATION: Yes Soft to palpation : COMMON NORMALS: Yes no CVA tenderness BLADDER/KIDNEY EXAM: Yes no CVA tenderness Back/Pelvis: COMMON NORMALS: no CVA tenderness LUMBAR SPINE/LOWER BACK: Yes pain with ROM, No lumbar spinal tenderness, Yes paraspinal muscle tenderness Lumbar paraspinal muscle tenderness: right and Yes straight leg raise positive right Extremity: COMMON NORMALS: normal to inspection Neuro: COMMON NORMALS: patient oriented x3 and moves all extremities SENSORIUM/ORIENTATION: Yes alert Skin: GENERAL SKIN EXAM: dry skin Course Vital Signs: Vital signs: Vital Signs Temperature 99.2 F 11/30/21 15:46 Pulse Rate 75 11/30/21 15:46 Respiratory Rate 18 11/30/21 16:28 Blood Pressure 111/78 11/30/21 15:46 Pulse Oximetry 99 11/30/21 15:46 MDM - Back Pain/Injury Medical Decision Making Patient is a 26-year-old male comes to the ED with lumbar back pain that radiates down into right leg. Denies any cauda equina symptoms. Vitals are stable. Patient has right lumbar paraspinal muscle tenderness. Denies any fall or trauma to the lumbar spine. Patient was given a dose of pain meds, muscle relaxer and steroid here in the ED. He was stable for discharge home and diagnosed with lumbar radiculopathy. Patient was discharged home with a prescription for Celebrex, Flexeril and prednisone. Told to follow-up with his PCP in the next week for reevaluation. Return to ED precautions given. Patient understood and agreed with plan. Discharge Plan Discharge Patient Disposition: Home Clinical Impression: Lumbar radiculopathy Condition: Stable Prescriptions: New Celebrex 100 mg capsule 100 mg PO BID PRN (Reason: pain) Qty: 30 0RF prednisone 20 mg tablet 20 mg PO BID 7 Days Qty: 14 0RF cyclobenzaprine 10 mg tablet 10 mg PO BID PRN (Reason: muscle spasms and pain) Qty: 20 0RF No Action amitriptyline 25 mg tablet 25 mg PO DAILY Qty: 90 1RF Protonix 40 mg tablet,delayed release (DR/EC) 40 mg PO DAILY 90 Days Qty: 90 1RF sumatriptan succinate 25 mg tablet See Rx Instructions PO .COMPLEX PRN (Reason: migraine headache) Qty: 10 3RF Rx Instructions: take 1 tab at onset of headache; if no relief may repeat 1 tab after at least 2 hrs; max = 4 tabs/24 hr PO PRN; Tylenol Ex Str Rapid Release 500 mg Tablet 1,500 mg PO Q6H PRN (Reason: Pain) 0RF baclofen 5 mg Tablet 10 mg PO .ONCE 0RF buspirone 5 mg tablet 5 mg PO BID PRN (Reason: Anxiety) 0RF Discharge Orders: Discharge ED (Routine); Ordered 11/30/21 Ordered By: Roland Meyer Referrals: Ruel Hankins DO [Primary Care Provider] - Discharge Diet: Regular Discharge Activity: Increase activity as tolerated Patient Instructions: Lumbar Radiculopathy (ED) Activity Restrictions/Additional Instructions: Follow-up with medical provider as directed in the next 5 to 7 days for reevaluation. Take medications as prescribed. You can start taking the steroid prescription tomorrow since you received a shot of steroid here in the ED. Apply cold pack on lower back multiple times throughout the day and stretch lower back muscles daily. Return to the ER or your medical provider if condition worsens. Please read and understand discharge instructions. Thank you for choosing [facility] for your healthcare needs today. Please realize this is an emergency room and that we are providing you with a medical screening exam and this may not be complete and all inclusive of all the testing and or work up that you may need to determine your ailment or severity of your illness. It is very important that you follow up as instructed or that you return to the Emergency Department should you have concerns or if your condition changes or worsens in any way. 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
[2021-11-30 16:28] VITALS: RESP 18
[2021-11-30] MEDS: morphine 4 mg/mL SDV 1 mL IM (16:28)
[2021-11-30] MEDS: orphenadrine 30 mg/mL Inj 2 mL 60 MG IM (16:28)
[2021-11-30] MEDS: ketorolac 60 mg/2 mL INJ IM (17:30)
== END 2021-11-30 17:45 | disposition home or self-care (01) ==
PROVIDERS: Emergency Provider Physician Assistant; PCP Family Medicine
DX: M54.16 Radiculopathy, lumbar region (principal)
CPT/HCPCS: 96372; 99284; J1885; J2270; J2360; J2930

== ENCOUNTER 2023-03-26 12:29 | Emergency (ER) | payer BC, MEDICAID, SELFPAY ==
[2023-03-26] VITALS (8 sets, daily range): BP systolic 128–163; BP diastolic 91–106; PULSE 70–102; RESP 18–24; TEMP 36.2; O2SAT 95–100; BMI 26.4
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
[2023-03-26] MEDS: morphine 4 mg/mL SDV 1 mL 8 MG IVP ×2 (12:50→13:10)
[2023-03-26] MEDS: sodium chloride 0.9% 1,000 ML 999 ML IV ×2 (12:50→13:04)
[2023-03-26] MEDS: ondansetron 2 mg/ML SDV 2 mL 4 MG IVP (12:50)
[2023-03-26] MEDS: tetanus-dipt-pertussis 0.5 mL SDV IM (12:53)
[2023-03-26 13:54] LABS: Basophils # 0.1 10^3/uL (0.0-0.1); Eosinophils # 0.3 10^3/uL (0.0-0.8); Eosinophils % 3.9 %; Hematocrit 44.2 % (37-53); Lymphocytes # 1.7 10^3/uL (0.8-4.8); Lymphocytes % 21.4 %; Mean Corpuscular HGB Conc 32.8 g/dL (30-55); Mean Corpuscular Hemoglobin 29.5 pg (27-33); Mean Corpuscular Volume 89.8 fl (82-101); Mean Platelet Volume 9.1 fL (7.4-10.4); Monocytes # 0.6 10^3/uL (0.2-0.9); Monocytes % 7.4 %; Neutrophils # 5.21 10^3/uL (1.8-7.7); Nucleated Red Blood Cells % 0 %; Platelet Count 231 10^3/cmm (157-399); Red Blood Count 4.92 10^6/uL (3.85-5.65); Red Cell Distribution Width 13.2 % (12.1-15.1); White Blood Count 7.89 10^3/uL (3.29-11.43)
[2023-03-26 14:27] LABS: Alanine Aminotransferase 9 U/L (0-41); Albumin Level 3.7 g/dL (3.5-5.2); Alkaline Phosphatase 77 U/L (40-130); Aspartate Amino Transferase 10 U/L (0-40); Blood Urea Nitrogen 10 mg/dL (6-20); Calcium 8.5 mg/dL (8.5-10.5); Carbon Dioxide 21 mmol/L (22-29); Chloride 107 mmol/L (98-107); Globulin 2.5 g/dL (1.3-4.6); Glomerular Filtration Rate 114.3 mL/min (90-130); Glucose 98 mg/dL (65-115); Osmolality Calculated 287 mOsm/kg (285-295); Sodium 139 mmol/L (136-145); Total Bilirubin 0.3 mg/dL (0.15-1.2); Total Protein 6.2 g/dL (6.6-8.7)
--- NOTE | 2023-03-26 14:29 | XR_ITS ---
WS: [id number] Exam: XR chest 1V portable [id number] Date/Time of Exam: 03/26/2023 2:35 PM Reason For Exam: dyspnea/cough Comparison 07/01/2014. Findings: The lungs are clear and fully expanded. Costophrenic angles are sharp. No infiltrates. Bronchovascula r relief appears normal. Cardiac silhouette is unremarkable. Bony elements are intact. IMPRESSION: Unremarkable chest radiograph.
[2023-03-26] MEDS: mupirocin oint 22 gm 1 APPLIC TOPICAL (16:09)
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
--- NOTE | 2023-03-26 17:51 | DCPLANNER ---
I faxed paperwork to [facility] burn unit on 03/26/23 at [id number]. [facility] burn unit to contact patient. Facesheet, labs, dr note, and nurses charting sent to the clinic.
== END 2023-03-26 17:48 | disposition home or self-care (01) ==
PROVIDERS: Emergency Provider Family Medicine
DX: T23.261A Burn of second degree of back of right hand, initial encounter (principal); T23.262A Burn of second degree of back of left hand, initial encounter; T22.211A Burn of second degree of right forearm, initial encounter; T22.212A Burn of second degree of left forearm, initial encounter; T24.211A Burn of second degree of right thigh, initial encounter; T24.212A Burn of second degree of left thigh, initial encounter; T21.12XA Burn of first degree of abdominal wall, initial encounter; T31.0 Burns involving less than 10% of body surface; W40.8XXA Explosion of other specified explosive materials, initial encounter; Z23 Encounter for immunization
CPT/HCPCS: 36415; 71045; 80053; 85025; 90471; 90715; 96361; 96374; 96375; 99284; J2270; J2405; J7030